=== PATIENT | male | born 1985 | race Asian ===

== ENCOUNTER → 2023-10-02 | Outpatient (CLI) | payer OTHER ==
[~2023-10-02] MED LIST: Albuterol 0.083% Neb Soln 2.5 MG/3 ML UD IH ONE; Methacholine Vial A (Clear Label Base-Cntrl) IH ONE; Methacholine Vial B (Red Label) 0.0625 MG/ML 3 ML VIAL.NEB IH ONE; Methacholine Vial C (Orange Label) 0.25 MG/ML 3 ML VIAL.NEB IH ONE; Methacholine Vial D (Yellow Label) 1 MG/ML 3 ML VIAL.NEB IH ONE; Methacholine Vial E (Green Label) 4 MG/ML 3 ML VIAL.NEB IH ONE; Methacholine Vial F (Blue Label) 16 MG/ML 3 ML VIAL.NEB IH ONE
== END ==
LOC: COL.CARD 05:18
DX: R06.02 Shortness of breath (principal)
CPT/HCPCS: J7674

== ENCOUNTER → 2023-11-10 | Outpatient (CLI) | payer OTHER ==
[~2023-11-10] MED LIST changes: -Methacholine Vial A (Clear Label Base-Cntrl) IH ONE; -Methacholine Vial B (Red Label) 0.0625 MG/ML 3 ML VIAL.NEB IH ONE; -Methacholine Vial C (Orange Label) 0.25 MG/ML 3 ML VIAL.NEB IH ONE; -Methacholine Vial D (Yellow Label) 1 MG/ML 3 ML VIAL.NEB IH ONE; -Methacholine Vial E (Green Label) 4 MG/ML 3 ML VIAL.NEB IH ONE; -Methacholine Vial F (Blue Label) 16 MG/ML 3 ML VIAL.NEB IH ONE
== END ==
LOC: COL.CARD 09:19
DX: R06.02 Shortness of breath (principal)